=== PATIENT | male | born 1985 | race Caucasian/White ===

== ENCOUNTER 2018-09-29 10:30 | Day surgery (SDC) | payer OTHER ==
[~2018-09-29 10:30] MED LIST: MAGN400T3 PO; TOPI25TA7 PO; ceFAZolin 2GM PREMIX 2 GM/50 ML BAG IV ONE
[2018-09-29] MEDS ORDERED: BUPIVACAINE-EPI 0.25%-1:200000 MPF 30 ML VIAL. ONE (10:36)
[2018-09-29] MEDS ORDERED: IV RINGERS,LACTATED 1000ML 1,000 ML IV SCH (10:38)
[2018-09-29] MEDS ORDERED: fentaNYL PF VIAL 100 MCG/2 ML VIAL IV PRN ×2 (10:45)
[2018-09-29] MEDS ORDERED: LIDOCAINE 1% PF 2 ML VIAL. ID PRN (10:45)
[2018-09-29] MEDS ORDERED: MIDAZOLAM HCL/PF 2 MG/2 ML VIAL. IV PRN (10:45)
[2018-09-29] MEDS ORDERED: ACETAMINOPHEN 500 MG TABLET PO ONE ×2 (11:19→11:30)
[2018-09-29] MEDS ORDERED: SEVOFLURANE 61 TO 120 MINUTES. IH ONE (11:20)
[2018-09-29] MEDS ORDERED: PROPOFOL 20 ML IV ONE (11:20)
[2018-09-29] MEDS ORDERED: LIDOCAINE 2% PF 5 ML VIAL. ONE (11:20)
[2018-09-29] MEDS ORDERED: fentaNYL PF VIAL 100 MCG/2 ML VIAL ONE (12:32)
[2018-09-29] MEDS ORDERED: KETOROLAC 30 MG/ML INJ FOR OR. INJ ONE ×2 (12:33)
[2018-09-29] MEDS ORDERED: DEXAMETHASONE SOD PHOS 4 MG/ML VIAL ONE (12:33)
--- NOTE | 2018-09-29 13:05 | PDOC4 ---
Operative Note Operative Note Date: 09/29/2018 Preoperative diagnosis: Bilateral gynecomastia Postoperative diagnosis: Same Procedure: Bilateral subcutaneous mastectomy Surgeon: Aj Specimen: Bilateral breast tissue Dictation: Patient is a 33-year-old male who's had enlarging breasts will last several years was recently is becoming quite painful. Procedure of bilateral simple continuous mastectomy was explained to the patient detail risk benefits were also discussed including bleeding infection alternatives to this procedure also discussed with the patient is seemed to understand and gave verbal and written consent to have the procedure performed. Patient was taken to the operating room placed in supine position general anesthesia was initiated once patient was sleep and intubated his chest was prepped and draped usual sterile fashion using ChloraPrep. An area around the inferior nipple areolar complex was injected with quarter percent Marcaine with epinephrine incision was made at the nipple areolar complex with 15 blade scalpel this carried down through the subcutaneous tissue using electrocautery to provide hemostasis the breast tissue mass beneath the nipple areolar complex was excised sharply with electrocautery and sent for pathology. Wound was then packed with Aristra and Ray-Og tensions returned to the right side where similarly the inferior nipple areolar complex was injected with quarter percent Marcaine with epinephrine incision was made with a 15 blade scalpel this is carried down through the subcutaneous changes tissue using Reilly of right hemostasis the mass was excised with electrocaut karel and sent for pathology. The wound was again packed with Aristra . Both wounds were closed in 2 layers a deep layer of single 3-0 Vicryl and the skin was approximate for septic or Monocryl Mastisol Steri-Strips and island dressings were applied a pressure dressing then was applied with an Antonio wrap around the chest. Patient was awakened and extubated in the operating room taken to recovery in stable condition all sponge instrument needle counts listed as correct estimated blood loss 20 mL SAVANAH AHN MD September 29, 2018 13:05
--- NOTE | 2018-09-29 13:07 | DISCH ---
DISCHARGE INSTRUCTIONS Condition on Discharge Condition on Discharge: Stable Activity After Discharge Activity Instructions for Disc: Avoid exertion Diet after Discharge Diet after Discharge: Regular Wound Incision Care Other wound/incision instructi: May shower in 24 hours Contacting the after DC Call your doctor for: If your condition worsens Follow-Up Follow up with: Dr. Ahn in 2 weeks SAVANAH AHN MD September 29, 2018 13:07
[2018-09-29] MEDS ORDERED: HYDROcodone/APAP 5/325MG 1 TAB TABLET ONE (14:11)
[2018-09-29] MEDS ORDERED: HYDROcodone/APAP 5/325MG 1 TAB TABLET PO ONE (14:15)
[2018-09-29] MEDS ORDERED: HYDR-3164 PO (14:36)
[2018-09-29 14:40] VITALS: BP 140/80
--- NOTE | 2018-10-01 19:06 | PATHOLOGY ---
[facility] Accession Number: [id number] . 01 Material submitted: . PART A: breast - LEFT BREAST TISSUE. Modifiers: left PART B: breast - RIGHT BREAST TISSUE. Modifiers: right . 01 Clinical history: . Gynecomastia . 02 Diagnosis: A. Breast tissue, left, subcutaneous mastectomy: - Gynecomastia. . B. Breast tissue, right, subcutaneous mastectomy: - Gynecomastia. - Simple cysts. . (SKM:mml; 09/30/2018) [facility]/09/30/2018 . 02 Electronically signed: . Giovani Fonseca MD, Pathologist NPI- [id number] . 01 Gross description: . A. The specimen is received in formalin, labeled "Nito Moreno Jr, left breast tissue" and consists of 2 segments of pink-yellow fibroadipose tissue measuring 15.7 x 6.5 x 3.0 cm and weighing 125 g. No skin is present. Sectioning reveals 50% dense fibrous tissue and no masses or lesions. Research Biologist sections are submitted in A1-A2. . B. The specimen is received in formalin, labeled "Nito Moreno Jr, right breast tissue" and consists of 2 segments of pink-yellow fibroadipose tissue weighing 103 g and measuring 11.8 x 7.3 x 2.6 cm. Sectioning reveals 50% dense fibrous tissue and no masses or lesions. Research Biologist sections are submitted in B1-B2. (SDY; 09/29/2018) SYU/SYU . 02 Pathologist provided ICD-10: N62, N60.01 . 02 CPT . 107914, [id number] Specimen Comment: A courtesy copy of this report has been sent to Specimen Comment: [phone]. Specimen Comment: Report sent to Performed at: 01 [facility] [address] [id number] MD Cj Bryan MD Phone: [phone] Performed at: 02 [facility] [address] [id number] MD Munir Arcos MD Phone: [phone]
== END 2018-09-29 15:16 | disposition home or self-care (01) ==
LOC: SURG 10:30
PROVIDERS: ATTEND Surgery
DX: N62 Hypertrophy of breast (principal); N60.01 Solitary cyst of right breast; G43.909 Migraine, unspecified, not intractable, without status migrainosus; Z79.899 Other long term (current) drug therapy; Z80.1 Family history of malignant neoplasm of trachea, bronchus and lung; Z72.89 Other problems related to lifestyle
CPT/HCPCS: 19304; 88305; A7015; J0696; J1100; J1885; J2001; J2704; J3010

== ENCOUNTER 2018-09-29 22:06 | Inpatient (IN) | payer OTHER ==
[~2018-09-29] VITALS: Ht 177.8 cm; Wt 96.6 kg
[~2018-09-29 22:06] MED LIST changes: +HYDR-3164 PO; -ceFAZolin 2GM PREMIX 2 GM/50 ML BAG IV ONE
[2018-09-29 23:28] VITALS: BP 137/93
[2018-09-30] MEDS ORDERED: ONDANSETRON PF 4 MG/2 ML VIAL. IV PRN
[2018-09-30] MEDS ORDERED: fentaNYL PF VIAL 100 MCG/2 ML VIAL IV PRN
[2018-09-30 00:23] LABS: BASO # 0.1 x10^3/uL (0.0-0.2); BASO % 0 % (0-3); EOS % 0 % (0-3); HEMATOCRIT 44.1 % (39.0-53.0); HEMOGLOBIN 15.1 g/dL (13.0-17.5); LYMPH # 1.2 x10^3/uL (1.0-4.8); LYMPH % 8 % (24-48); MEAN CORPUSCULAR HEMOGLOBIN 32 pg (25-35); MEAN CORPUSCULAR HGB CONC 34 g/dL (31-37); MEAN CORPUSCULAR VOLUME 93 fL (79-100); MONO # 0.8 x10^3/uL (0.0-1.1); MONO % 6 % (0-9); NEUT # 12.7 x10^3uL (1.8-7.7); NEUT % 86 % (31-73); PLATELET COUNT 252 x10^3/uL (140-400); RED BLOOD COUNT 4.75 x10^6/uL (4.30-5.70); RED CELL DISTRIBUTION WIDTH 12.4 % (11.5-14.5); WHITE BLOOD COUNT 14.8 x10^3/uL (4.0-11.0)
[2018-09-30 00:32] LABS: CALCIUM 8.8 mg/dL (8.5-10.1); CREATININE 1.3 mg/dL (0.7-1.3); GFR 63.2; POTASSIUM 3.8 mmol/L (3.5-5.1)
[2018-09-30 00:38] LABS: ALBUMIN 3.9 g/dL (3.4-5.0); ALBUMIN/GLOBULIN RATIO 1.3 (1.0-1.7); TOTAL BILIRUBIN 0.6 mg/dL (0.2-1.0); TOTAL PROTEIN 6.8 g/dL (6.4-8.2)
[2018-09-30 00:41] LABS: % LYMPHS 8 % (24-48); % MONOS 4 % (0-10); % SEGS 88 % (35-66); PLT ESTIMATE ADEQUATE (ADEQUATE)
--- NOTE | 2018-09-30 01:00 | NUR ---
ADMIT The patient, REGINA CRONIN JR, 33 y/o, M admitted by LIANNE MANDUJANO MD, was given written information regarding hospital policies, unit procedures and contact persons. Dr. Mandujano notified of pt's arrival and orders rcvd. Pt's VSS and afebrile w/ no c/o pain at admission. Pt's admission assessment complete, admit packet reviewed and plan of care discussed. Home meds reviewed and valuables were checked and left in room with pt. Pt resting in bed, call light within reach and bed in lowest/locked position, will continue to monitor.
[2018-09-30 02:52] VITALS: BP 107/60
--- NOTE | 2018-09-30 06:18 | NUR ---
Consult to Dr. Rocha called in this morning 0613.
[2018-09-30 07:00] VITALS: BP 116/64
--- NOTE | 2018-09-30 08:48 | PDOC2 ---
CONSULT Date of Consult Date of Consult DATE: 09/30/18 TIME: 08:44 Reason for Consult Reason for Consult: swelling Referring Physician Referring Physician: Dr lu Identification/Chief Complaint Chief Complaint swelling Source Source: Chart review, Patient History of Present Illness Reason for Visit: Yesterday underwent bilateral subcutaneous mastectomy with Dr Rocha. Developed swelling to left breast/chest area. Concerned, came to ER for evaluation. Past Medical History Past Medical History no significant hx Past Surgical History Past Surgical History: Other (rozina subq mastectomy ) Family History Family History: Other (noncontributory to current illness ) Social History No ALCOHOL: occassional Lives: Alone Current Medications Current Medications Current Medications Ondansetron HCl (Zofran) 4 mg PRN Q4HRS PRN IV NAUSEA/VOMITING 1ST CHOICE; Start 09/30/18 at 00:00 Fentanyl Citrate (Fentanyl 2ml Vial) 50 mcg PRN Q4HRS PRN IV SEVERE PAIN; Start 09/30/18 at 00:00 Active Scripts Active Reported [place] 5-325 Tablet (Acetaminophen/Hydrocodone Bitart) 1 Each Tablet 1-2 Tab PO Q4-6HRS LAST DOSE GIVEN: at 1417 so you may take a second tablet as soon as you desire then 1 or 2 as needed every 4 hours. Magnesium Oxide 400 Mg Tablet 400 Mg PO DAILY Topiramate 25 Mg Tablet 25 Mg PO BID Allergies Allergies: Coded Allergies: No Known Drug Allergies (Unverified , 09/29/18) ROS General: No: Chills, Other (fevers ) PSYCHOLOGICAL ROS: No: Anxiety, Depression Eyes: No Blurry vision, No Double vision HEENT: No: Heacaches, Sore Throat Hematological and Lymphatic: No: Bleeding Problems, Blood Clots Respiratory: No: Cough, Shortness of breath Cardiovascular: No Chest Pain, No Palpitations Gastrointestinal: No Nausea, No Vomiting Genitourinary: No Dysuria, No Hematuria Musculoskeletal: No Joint Pain, No Muscle Pain Neurological: No Confusion, No Impaired Coord/balance Skin: Yes Other (see hpi) Physical Exam Physical Exam swelling to left chest area, no erythema General: Alert, Oriented X3, Cooperative, No acute distress HEENT: PERRLA, Mucous membr. moist/pink Lungs: Clear to auscultation, Normal air movement Heart: Regular rate, Normal S1, Normal S2, No murmurs Abdomen: Normal bowel sounds, Soft, No tenderness, No hepatosplenomegaly, No masses Extremities: No clubbing, No cyanosis, No edema, Normal pulses, No tenderness/swelling Skin: No rashes, No breakdown Neuro: Normal gait, Normal speech Psych/Mental Status: Mental status NL, Mood NL MUSCULOSKELETAL: No joint tenderness, No deformity Vitals VITALS Vital Signs Date Time Temp Pulse Resp B/P (MAP) Pulse Ox O2 Delivery O2 Flow Rate FiO2 09/30/18 08:00 Room Air 09/30/18 07:00 98.5 89 18 116/64 (81) 97 98.5 Labs Labs Laboratory Tests Test 09/30/18 00:10 White Blood Count 14.8 x10^3/uL (4.0-11.0) Red Blood Count 4.75 x10^6/uL (4.30-5.70) Hemoglobin 15.1 g/dL (13.0-17.5) Hematocrit 44.1 % (39.0-53.0) Mean Corpuscular Volume 93 fL (79-100) Mean Corpuscular Hemoglobin 32 pg (25-35) Mean Corpuscular Hemoglobin Concent 34 g/dL (31-37) Red Cell Distribution Width 12.4 % (11.5-14.5) Platelet Count 252 x10^3/uL (140-400) Neutrophils (%) (Auto) 86 % (31-73) Lymphocytes (%) (Auto) 8 % (24-48) Monocytes (%) (Auto) 6 % (0-9) Eosinophils (%) (Auto) 0 % (0-3) Basophils (%) (Auto) 0 % (0-3) Neutrophils # (Auto) 12.7 x10^3uL (1.8-7.7) Lymphocytes # (Auto) 1.2 x10^3/uL (1.0-4.8) Monocytes # (Auto) 0.8 x10^3/uL (0.0-1.1) Eosinophils # (Auto) 0.0 x10^3/uL (0.0-0.7) Basophils # (Auto) 0.1 x10^3/uL (0.0-0.2) Segmented Neutrophils % 88 % (35-66) Lymphocytes % 8 % (24-48) Monocytes % 4 % (0-10) Platelet Estimate Adequate (ADEQUATE) Sodium Level 136 mmol/L (136-145) Potassium Level 3.8 mmol/L (3.5-5.1) Chloride Level 101 mmol/L (98-107) Carbon Dioxide Level 26 mmol/L (21-32) Anion Gap 9 (6-14) Blood Urea Nitrogen 20 mg/dL (8-26) Creatinine 1.3 mg/dL (0.7-1.3) Estimated GFR (Cockcroft-Gault) 63.2 BUN/Creatinine Ratio 15 (6-20) Glucose Level 140 mg/dL (70-99) Calcium Level 8.8 mg/dL (8.5-10.1) Total Bilirubin 0.6 mg/dL (0.2-1.0) Aspartate Amino Transf (AST/SGOT) 14 U/L (15-37) Alanine Aminotransferase (ALT/SGPT) 22 U/L (16-63) Alkaline Phosphatase 76 U/L (46-116) Total Protein 6.8 g/dL (6.4-8.2) Albumin 3.9 g/dL (3.4-5.0) Albumin/Globulin Ratio 1.3 (1.0-1.7) Laboratory Tests Test 09/30/18 00:10 White Blood Count 14.8 x10^3/uL (4.0-11.0) Red Blood Count 4.75 x10^6/uL (4.30-5.70) Hemoglobin 15.1 g/dL (13.0-17.5) Hematocrit 44.1 % (39.0-53.0) Mean Corpuscular Volume 93 fL (79-100) Mean Corpuscular Hemoglobin 32 pg (25-35) Mean Corpuscular Hemoglobin Concent 34 g/dL (31-37) Red Cell Distribution Width 12.4 % (11.5-14.5) Platelet Count 252 x10^3/uL (140-400) Neutrophils (%) (Auto) 86 % (31-73) Lymphocytes (%) (Auto) 8 % (24-48) Monocytes (%) (Auto) 6 % (0-9) Eosinophils (%) (Auto) 0 % (0-3) Basophils (%) (Auto) 0 % (0-3) Neutrophils # (Auto) 12.7 x10^3uL (1.8-7.7) Lymphocytes # (Auto) 1.2 x10^3/uL (1.0-4.8) Monocytes # (Auto) 0.8 x10^3/uL (0.0-1.1) Eosinophils # (Auto) 0.0 x10^3/uL (0.0-0.7) Basophils # (Auto) 0.1 x10^3/uL (0.0-0.2) Segmented Neutrophils % 88 % (35-66) Lymphocytes % 8 % (24-48) Monocytes % 4 % (0-10) Platelet Estimate Adequate (ADEQUATE) Sodium Level 136 mmol/L (136-145) Potassium Level 3.8 mmol/L (3.5-5.1) Chloride Level 101 mmol/L (98-107) Carbon Dioxide Level 26 mmol/L (21-32) Anion Gap 9 (6-14) Blood Urea Nitrogen 20 mg/dL (8-26) Creatinine 1.3 mg/dL (0.7-1.3) Estimated GFR (Cockcroft-Gault) 63.2 BUN/Creatinine Ratio 15 (6-20) Glucose Level 140 mg/dL (70-99) Calcium Level 8.8 mg/dL (8.5-10.1) Total Bilirubin 0.6 mg/dL (0.2-1.0) Aspartate Amino Transf (AST/SGOT) 14 U/L (15-37) Alanine Aminotransferase (ALT/SGPT) 22 U/L (16-63) Alkaline Phosphatase 76 U/L (46-116) Total Protein 6.8 g/dL (6.4-8.2) Albumin 3.9 g/dL (3.4-5.0) Albumin/Globulin Ratio 1.3 (1.0-1.7) Assessment/Plan Assessment/Plan s/p subq mastectomy bilat--excepted postop swelling, no surgical interventions needed DC home FU as scheduled JOSÉ MIGUEL VAUGHAN [employer] ANALYST September 30, 2018 08:48
--- NOTE | 2018-09-30 09:13 | SSS ---
ADMIT DATE: HISTORY OF PRESENT ILLNESS: The patient is a 33-year-old male patient who was admitted yesterday as he was complaining of enlarging breast that has been going on for several years that is recently becoming quite painful. He underwent bilateral subcutaneous mastectomy for bilateral gynecomastia uneventfully and was discharged home and he apparently presented to the Emergency Room of [facility] with a complaint that he has marked swelling, especially the left side, and complained of some discomfort, but no pain. There is no active bleeding and the patient was basically hemodynamically stable and the surgical team was consulted and they recommended transferring him to [facility] for evaluation and treatment by the surgical team. The patient was started on IV fluid as well as IV pain medication and we did check his lab work to make sure he is not losing blood. We did consult Dr. Rocha for evaluation and treatment. PAST MEDICAL HISTORY: Significant for migraine headache and bilateral gynecomastia. PAST SURGICAL HISTORY: Significant for wisdom teeth extraction and this most recent bilateral subcutaneous mastectomy. ALLERGIES: He has no known drug allergies. MEDICATIONS: He is currently on topiramate for his migraine headache. FAMILY HISTORY: Unremarkable. SOCIAL HISTORY: He is , has no children. He does not smoke, drink alcohol or use any recreational drugs. He is a [employer]. REVIEW OF SYSTEMS: As per history of present illness. PHYSICAL EXAMINATION: GENERAL: On arrival to the hospital, he looked well and while I saw him, he was resting, slightly propped up in bed, no apparent distress. No pallor, jaundice, cyanosis, or thyromegaly. No jugular venous distension. No limb edema. VITAL SIGNS: Her heart rate was 87, blood pressure was 107/60, temperature was 98.3, respiratory rate was 18 and oxygen saturation was 96%. HEAD, EYES, EARS, NOSE AND THROAT: Showed normocephalic, atraumatic. NECK: Supple. HEART: Showed normal first and second sounds. No gallop, rub or murmur. CHEST: Clear to auscultation. No crepitation or rhonchi. ABDOMEN: Distended, soft, nontender. NEUROLOGIC: He is awake, alert. No guarding or rigidity. No organomegaly. All hernial orifices intact. Bowel sounds normal. BREAST: The surgical incisions are healing nicely with no near redness or tenderness. The overlying skin of both breasts is normal. No obvious redness. He has some tenderness mostly on the left side. LABORATORY DATA: Showed that his white cell count was 14,800; hemoglobin 15; hematocrit 44; MCV 93; and platelet count of 252,000. His chemistry showed a serum sodium 136, potassium 3.8, chloride 101, bicarbonate 26, anion gap of 9, BUN 20, creatinine 1.3, estimated GFR was 63 mL per minute, his glucose 140, calcium was 8.8. Total bilirubin, AST, ALT, alkaline phosphatase were normal. Total protein was 6.8, albumin 3.9. ASSESSMENT AND PLAN: The patient was discharged home. He was evaluated by the surgical team and apparently was reassured that this is an expected postoperative finding that does not need any intervention and was discharged home to follow in 2 weeks' time. FINAL DISCHARGE DIAGNOSES: 1. Slight swelling of the left breast, status post bilateral subcutaneous mastectomy for bilateral gynecomastia. 2. Migraine headache. LIANNE AMNDUJANO MD DR: KOKO/kris JOB#: [id number] / [id number]
--- NOTE | 2018-09-30 09:45 | NUR ---
Discharge Note: REGINA ANGULO[address] [place] [address] Discharge instructions and discharge home medications reviewed with Patient and a copy given. All questions have been answered and understanding verbalized. The following instructions and handouts were given: information about mastectomy and follow up appointments. Discontinued lines and drains: IV line in right forearm removed, catheter tip intact. Patient discharged to home with self care with friend, patient ambulated to discharge vehicle.
== END 2018-09-30 09:45 | disposition home or self-care (01) | DRG 601 ==
LOC: 4 NORTH 23:19
PROVIDERS: ADMIT Internal Medicine; ATTEND Internal Medicine
DX: N62 Hypertrophy of breast (principal); G43.909 Migraine, unspecified, not intractable, without status migrainosus; Z90.13 Acquired absence of bilateral breasts and nipples; Z79.899 Other long term (current) drug therapy
CPT/HCPCS: 36415; 80053; 85007; 85025